=== PATIENT | female | born 1980 | race Caucasian/White ===

== ENCOUNTER 2017-03-25 16:18 | Emergency (ER) | payer MEDICARE ==
[2017-03-25] MEDS ORDERED: CYMBALTA (16:20)
[2017-03-25] MEDS ORDERED: COUMADIN (16:20)
== END 2017-03-25 17:18 | disposition home or self-care (01) ==
LOC: SED 16:18
DX: L03.211 Cellulitis of face (principal); Z79.01 Long term (current) use of anticoagulants
CPT/HCPCS: 99282

== ENCOUNTER 2017-05-21 18:35 | Emergency (ER) | payer MEDICARE ==
[~2017-05-21] VITALS: Ht 170.2 cm; Wt 72.6 kg
[~2017-05-21 18:35] MED LIST: COUMADIN; CYMBALTA
== END 2017-05-21 22:05 | disposition left against medical advice (07) ==
LOC: SED 18:35
DX: Z53.21 Procedure and treatment not carried out due to patient leaving prior to being seen by health care provider (principal)